=== PATIENT | female | born 1990 | race African-American/Black ===

== ENCOUNTER 2019-04-11 17:40 | Emergency (ER) | payer SELFPAY ==
[~2019-04-11] VITALS: Ht 162.6 cm; Wt 56.0 kg
[2019-04-11 18:11] VITALS: BP 107/82
== END 2019-04-11 20:38 | disposition home or self-care (01) ==
LOC: ER 17:40
DX: R51 Headache (principal); F17.200 Nicotine dependence, unspecified, uncomplicated; F12.10 Cannabis abuse, uncomplicated
CPT/HCPCS: 99281